=== PATIENT | female | born 1960 | race Caucasian/White ===

== ENCOUNTER 2022-06-11 14:58 | Emergency (ER) | payer MEDICAID ==
[~2022-06-11] VITALS: Ht 157.5 cm; Wt 71.4 kg
[2022-06-11 15:19] VITALS: BP 122/63
[2022-06-11] MEDS ORDERED: FLUORESCEIN SODIUM 1MG/STRIP RIGHTEYE ONE (23:15)
[2022-06-11] MEDS ORDERED: TETRACAINE 0.5% OPHTH DROPS 4ML RIGHTEYE ONE (23:15)
[2022-06-12] MEDS ORDERED: POLY10DR EACHEYE
== END 2022-06-12 00:22 | disposition home or self-care (01) ==
LOC: ER 14:58
DX: H10.9 Unspecified conjunctivitis (principal); Z98.890 Other specified postprocedural states
CPT/HCPCS: 99283

== ENCOUNTER 2024-06-23 12:26 | Inpatient (IN) | payer SELFPAY ==
[~2024-06-23] VITALS: Ht 167.6 cm; Wt 66.7 kg
[~2024-06-23 12:26] MED LIST: POLY10DR EACHEYE
[2024-06-23 13:41] LABS: CHLORIDE 103 mEq/L (98-107); SODIUM 139 mEq/L (136-145)
[2024-06-23 13:42] LABS: BASOPHILS % 0.6 % (0.0-2.0); CALCIUM 8.6 mg/dL (8.7-10.4); CARBON DIOXIDE 26 mEq/L (21-32); EOSINOPHILS % 1.1 % (0.0-5.0); HEMATOCRIT. 37.9 % (36.0-48.0); HEMOGLOBIN. 12.5 g/dL (12.0-16.0); LYMPHOCYTES % 17.1 % (20.0-50.0); MEAN CORPUSCULAR VOLUME 90.8 fL (81.0-99.0); MEAN PLATELET VOLUME 8.7 fl (7.4-10.4); MONOCYTES % 8.1 % (2.0-8.0); NEUTROPHILS % 73.1 % (40.0-76.0); PLATELET 324 x1000/uL (130-400); RED BLOOD CELL COUNT 4.18 mill/uL (4.2-5.4); RED CELL DISTRIBUTION WIDTH 14.3 % (11.6-14.6); WHITE BLOOD COUNT 10.4 x1000/uL (4.5-11.0)
[2024-06-23 13:47] LABS: CREATININE 0.6 mg/dL (0.6-1.0); GLUCOSE 93 mg/dL (70-105); UREA NITROGEN BLOOD 13 mg/dL (9-23)
[2024-06-23 13:49] LABS: TROPONIN I HIGH SENSITIVITY < 4 ng/L (3.0-34)
[2024-06-23] MEDS ORDERED: HYDRALAZINE 20MG/ML VIAL IV PRN (16:00)
[2024-06-23] MEDS ORDERED: MAGNESIUM/ALUMINUM HYDROXIDE/SIMETHICONE 30ML UDC PO PRN (16:00)
[2024-06-23] MEDS ORDERED: CLONIDINE 0.1MG TABLET PO PRN (16:00)
[2024-06-23] MEDS ORDERED: IPRATROPIUM/ALBUTEROL 0.5-3(2.5)MG/3ML NEB NEB PRN (16:00)
[2024-06-23] MEDS ORDERED: ZOLPIDEM TARTRATE 5MG TABLET PO PRN (16:00)
[2024-06-23] MEDS ORDERED: NALOXONE HCL 0.4MG/ML VIAL IV PRN (16:45)
[2024-06-23 16:51] LABS: D-DIMER 1.07 mg/L FEU (<0.50); PARTIAL THROMBOPLASTIN TIME 25.2 sec (23.4-31.0); PROTHROMBIN TIME 10.6 sec (9.6-11.0)
[2024-06-23] MEDS: SODIUM CHLORIDE 0.9% 1,000 ML IV SCH (16:52)
[2024-06-23 18:23] VITALS: BP 109/60; PULSE 88; RESP 19; TEMP 37.1
[2024-06-23] MEDS: HYDROCODONE/ACETAMINOPHEN 5/325MG TABLET PO PRN (18:47)
[2024-06-23] MEDS: ENOXAPARIN 40MG/0.4ML SYR SUBCUT SCH (18:49)
[2024-06-23] MEDS: ONDANSETRON HCL 4MG/2ML INJ IV PRN (19:09)
[2024-06-23 20:00] VITALS: BP 98/40; PULSE 93; RESP 22; TEMP 36.7; O2SAT 92
[2024-06-23] MEDS: MAGNESIUM 2 G PREMIX 50 ML IV NR (22:08)
[2024-06-23 23:58] LABS: TROPONIN I HIGH SENSITIVITY 4 ng/L (3.0-34)
[2024-06-24] VITALS: BP 93/57; PULSE 77; RESP 19; TEMP 36.8; O2SAT 96
[2024-06-24] MEDS ORDERED: MORPHINE SULFATE 2 MG/ML INJ (NOT FOR IM USE) IV PRN
[2024-06-24 00:57] LABS: CLARITY URINE CLEAR (CLEAR); COLOR URINE YELLOW (YELLOW); GLUCOSE URINE NEGATIVE (NEGATIVE); KETONES URINE NEGATIVE (NEGATIVE); LEUKOCYTE ESTERASE URINE NEGATIVE (NEGATIVE); NITRITE URINE NEGATIVE (NEGATIVE); OCCULT BLOOD URINE NEGATIVE (NEGATIVE); PROTEIN URINE NEGATIVE (NEGATIVE); UROBILINOGEN URINE 0.2 E.U./dL (0.2-1.0)
[2024-06-24 01:11] LABS: *AMPHETAMINES SCREEN URINE NEGATIVE (NEGATIVE); *BARBITURATES SCREEN URINE NEGATIVE (NEGATIVE); *BENZODIAZEPINES SCREEN URINE NEGATIVE (NEGATIVE); *COCAINE SCREEN URINE NEGATIVE (NEGATIVE); METHADONE URINE SCREEN NEGATIVE (NEGATIVE); OPIATES URINE SCREEN PRESUMPTIVE POSITIVE (NEGATIVE)
[2024-06-24 01:12] LABS: CANNABINOID URINE SCREEN NEGATIVE (NEGATIVE); ECSTASY MDMA SCREEN URINE NEGATIVE (NEGATIVE); PHENCYCLIDINE URINE SCREEN NEGATIVE (NEGATIVE)
[2024-06-24 04:00] VITALS: BP 93/47; PULSE 88; RESP 20; TEMP 37; O2SAT 98
[2024-06-24 06:52] LABS: BASOPHILS % 0.3 % (0.0-2.0); EOSINOPHILS % 0.5 % (0.0-5.0); HEMATOCRIT. 32.2 % (36.0-48.0); HEMOGLOBIN. 10.9 g/dL (12.0-16.0); LYMPHOCYTES % 14.2 % (20.0-50.0); MEAN CORPUSCULAR HEMOGLOBIN 31.8 pg (28.0-32.0); MEAN CORPUSCULAR VOLUME 93.7 fL (81.0-99.0); MEAN PLATELET VOLUME 8.4 fl (7.4-10.4); MONOCYTES % 9.3 % (2.0-8.0); NEUTROPHILS % 75.7 % (40.0-76.0); PLATELET 247 x1000/uL (130-400); RED BLOOD CELL COUNT 3.44 mill/uL (4.2-5.4); WHITE BLOOD COUNT 10.6 x1000/uL (4.5-11.0)
[2024-06-24 07:05] LABS: CALCIUM 7.8 mg/dL (8.7-10.4); CARBON DIOXIDE 25 mEq/L (21-32); CHLORIDE 105 mEq/L (98-107); POTASSIUM 3.3 mEq/L (3.5-5.1); SODIUM 138 mEq/L (136-145)
[2024-06-24 07:09] LABS: CREATININE 0.6 mg/dL (0.6-1.0); GLUCOSE 93 mg/dL (70-105)
[2024-06-24 07:10] LABS: TROPONIN I HIGH SENSITIVITY 6 ng/L (3.0-34); UREA NITROGEN BLOOD 11 mg/dL (9-23)
[2024-06-24 08:00] VITALS: BP 110/47; PULSE 85; RESP 21; TEMP 37.5; O2SAT 99
[2024-06-24] MEDS: POTASSIUM CHLORIDE 20MEQ/PACKET PO NR (09:08)
[2024-06-24] MEDS: PANTOPRAZOLE SODIUM 40 MG/VIAL IV SCH (09:27)
[2024-06-24 12:00] VITALS: BP 105/37; PULSE 91; RESP 25; TEMP 37.2; O2SAT 95
[2024-06-24] MEDS: MAGNESIUM 2 G PREMIX 50 ML IV NR (15:56)
[2024-06-24 16:00] VITALS: BP 109/46; PULSE 91; RESP 19; TEMP 37.1; O2SAT 97
[2024-06-24 20:02] VITALS: BP 104/32; PULSE 88; RESP 17; TEMP 37.3; O2SAT 98
[2024-06-25 00:02] VITALS: BP 114/46; PULSE 69; RESP 18; TEMP 36.2; O2SAT 95
[2024-06-25 04:02] VITALS: BP 93/63; PULSE 88; RESP 17; TEMP 36.1; O2SAT 96
[2024-06-25 07:08] LABS: BASOPHILS % 0.3 % (0.0-2.0); EOSINOPHILS % 0.9 % (0.0-5.0); HEMATOCRIT. 31.7 % (36.0-48.0); HEMOGLOBIN. 10.6 g/dL (12.0-16.0); LYMPHOCYTES % 17.3 % (20.0-50.0); MEAN CORPUSCULAR HEMOGLOBIN 30.7 pg (28.0-32.0); MEAN CORPUSCULAR HGB CONC 33.3 g/dL (31.0-37.0); MEAN CORPUSCULAR VOLUME 92.2 fL (81.0-99.0); MEAN PLATELET VOLUME 8.4 fl (7.4-10.4); MONOCYTES % 7.7 % (2.0-8.0); NEUTROPHILS % 73.8 % (40.0-76.0); PLATELET 222 x1000/uL (130-400); RED BLOOD CELL COUNT 3.44 mill/uL (4.2-5.4); RED CELL DISTRIBUTION WIDTH 13.8 % (11.6-14.6); WHITE BLOOD COUNT 8.9 x1000/uL (4.5-11.0)
[2024-06-25 07:26] LABS: CALCIUM 8.2 mg/dL (8.7-10.4); CHLORIDE 108 mEq/L (98-107); POTASSIUM 3.6 mEq/L (3.5-5.1); SODIUM 142 mEq/L (136-145)
[2024-06-25 07:27] LABS: CARBON DIOXIDE 25 mEq/L (21-32)
[2024-06-25 07:32] LABS: CREATININE 0.5 mg/dL (0.6-1.0); GLUCOSE 84 mg/dL (70-105); UREA NITROGEN BLOOD 7 mg/dL (9-23)
[2024-06-25 08:00] VITALS: BP 114/51; PULSE 87; RESP 23; TEMP 37; O2SAT 96
[2024-06-25] MEDS ORDERED: LIDOCAINE HCL 1% 10 MG/ML 10ML VIAL ONE (08:19)
[2024-06-25] MEDS ORDERED: SODIUM BICARBONATE 4% 2.4MEQ/5ML VIAL IV ONE (08:20)
[2024-06-25 11:19] LABS: BODY FLUID MONOCYTES 2 %; BODY FLUID RBC 1625 /cu mm (0-2000); BODY FLUID WBC 20125 /cu mm (0-200)
[2024-06-25 12:00] VITALS: BP 90/77; PULSE 76; RESP 26; TEMP 36.7; O2SAT 96
[2024-06-25 16:00] VITALS: BP 105/54; PULSE 75; RESP 25; TEMP 36.8; O2SAT 96
[2024-06-25 20:02] VITALS: BP 125/53; PULSE 82; RESP 18; TEMP 36.2; O2SAT 98
[2024-06-25] MEDS: ATORVASTATIN CALCIUM 40MG TABLET PO SCH (21:34)
[2024-06-26 00:02] VITALS: BP 104/49; PULSE 74; RESP 22; TEMP 36.3; O2SAT 95
[2024-06-26 04:02] VITALS: BP 130/99; PULSE 73; RESP 17; TEMP 36.2; O2SAT 96
[2024-06-26 08:00] VITALS: BP 118/85; PULSE 82; RESP 18; TEMP 37.1; O2SAT 98
[2024-06-26] MEDS: ASPIRIN 81MG TABLET PO SCH (09:49)
[2024-06-26] MEDS: KETOROLAC 30MG/ML VIAL IV PRN (09:52)
[2024-06-26 12:00] VITALS: BP 93/62; PULSE 79; RESP 22; TEMP 36.8; O2SAT 99
[2024-06-26 13:45] LABS: BASOPHILS % 0.5 % (0.0-2.0); EOSINOPHILS % 2.5 % (0.0-5.0); HEMATOCRIT. 35.6 % (36.0-48.0); HEMOGLOBIN. 11.8 g/dL (12.0-16.0); LYMPHOCYTES % 19.3 % (20.0-50.0); MEAN CORPUSCULAR HEMOGLOBIN 30.6 pg (28.0-32.0); MEAN CORPUSCULAR HGB CONC 33.1 g/dL (31.0-37.0); MEAN CORPUSCULAR VOLUME 92.4 fL (81.0-99.0); MEAN PLATELET VOLUME 8.4 fl (7.4-10.4); MONOCYTES % 8.6 % (2.0-8.0); NEUTROPHILS % 69.1 % (40.0-76.0); PLATELET 282 x1000/uL (130-400); RED BLOOD CELL COUNT 3.85 mill/uL (4.2-5.4); RED CELL DISTRIBUTION WIDTH 14.2 % (11.6-14.6); WHITE BLOOD COUNT 5.7 x1000/uL (4.5-11.0)
[2024-06-26 13:54] LABS: CHLORIDE 108 mEq/L (98-107); POTASSIUM 3.6 mEq/L (3.5-5.1); SODIUM 142 mEq/L (136-145)
[2024-06-26 13:55] LABS: CALCIUM 8.3 mg/dL (8.7-10.4); CARBON DIOXIDE 25 mEq/L (21-32)
[2024-06-26 14:00] LABS: CREATININE 0.6 mg/dL (0.6-1.0); GLUCOSE 75 mg/dL (70-105); TRIGLYCERIDE 173 mg/dL (0-150); UREA NITROGEN BLOOD 5 mg/dL (9-23)
[2024-06-26 14:01] LABS: LDL CHOLESTEROL 120 mg/dL (5-100)
[2024-06-26 14:02] LABS: CHOLESTEROL 207 mg/dL (<200); HDL CHOLESTEROL 60 mg/dL (>65); THYROID STIMULATING HORMONE 0.73 uIU/mL (0.55-4.78)
[2024-06-26 16:00] VITALS: BP 110/85; PULSE 82; RESP 18; TEMP 37.1; O2SAT 98
[2024-06-26 20:02] VITALS: BP 116/54; PULSE 87; RESP 22; TEMP 36.1; O2SAT 97
[2024-06-27 00:02] VITALS: BP 121/56; PULSE 80; RESP 21; TEMP 36.2; O2SAT 95
[2024-06-27 04:02] VITALS: BP 112/61; PULSE 89; RESP 18; TEMP 36.4; O2SAT 97
[2024-06-27] MEDS ORDERED: REGADENOSON 0.4 MG/5 ML IV NR (07:15)
[2024-06-27 08:00] VITALS: BP 123/67; PULSE 94; RESP 18; TEMP 36.9; O2SAT 96
[2024-06-27 12:00] VITALS: BP 102/72; PULSE 80; RESP 15; TEMP 36.8; O2SAT 98
[2024-06-27] MEDS ORDERED: LIP40 PO (15:23)
[2024-06-27] MEDS ORDERED: ASPI-1160 PO (15:23)
[2024-06-27] MEDS ORDERED: NAPR-1176 MT (15:23)
[2024-06-27] MEDS ORDERED: COR3 MT (15:23)
[2024-06-27 16:00] VITALS: BP 109/72; PULSE 86; RESP 26; TEMP 36.7; O2SAT 96
[2024-06-27 17:02] VITALS: BP 109/72; PULSE 78; TEMP 98.1; O2SAT 97
[2024-06-28] MEDS ORDERED: FAMOTIDINE 20MG TABLET PO SCH (09:00)
== END 2024-06-27 18:20 | disposition home or self-care (01) | DRG 351 ==
LOC: ER 12:34 → EDBEDREQTM 13:40 → EDBEDREQ 13:40 → 3WST 17:29
PROVIDERS: ADMIT Internal Medicine; ATTEND Internal Medicine
PROC: 0S9C3ZZ Drainage of Right Knee Joint, Percutaneous Approach (ICD-10-PCS; principal; 2024-06-25)
DX: M25.461 Effusion, right knee (principal); I50.21 Acute systolic (congestive) heart failure; R56.9 Unspecified convulsions; I11.0 Hypertensive heart disease with heart failure; R07.89 Other chest pain; I49.3 Ventricular premature depolarization; E87.6 Hypokalemia; E83.42 Hypomagnesemia; K21.9 Gastro-esophageal reflux disease without esophagitis; Z90.710 Acquired absence of both cervix and uterus
CPT/HCPCS: 20611; 36415; 71045; 73562; 78452; 80048; 80061; 80305; 81003; 82962; 83036; 83735; 83880; 84443; 84484; 85025; 85379; 86850; 86900; 93005; 93306; 93880; 99291; A4606; A9500; J1650; J1885; J2003; J2405; J2470; J2785; J3475; J3490